=== PATIENT | male | born 1990 | race Hispanic/Latino ===

== ENCOUNTER 2020-05-24 10:17 | Emergency (ER) | payer SELFPAY ==
[2020-05-24 13:13] LABS: SARS-CoV-2 MS2 Positive; SARS-CoV-2 N Gene Positive; SARS-CoV-2 S Gene Positive; SARS-CoV-2 by NAA DETECTED (NotDetected); SARS-CoV-2 orf1ab Positive
== END 2020-05-24 10:47 | disposition home or self-care (01) ==
LOC: ERS 10:17
DX: U07.1 COVID-19 (principal)
CPT/HCPCS: 87635; 99283; U0003